=== PATIENT | female | born 1990 | race African-American/Black ===

== ENCOUNTER 2018-03-06 00:08 | Emergency (ER) | payer BC ==
[~2018-03-06] VITALS: Ht 165.1 cm; Wt 88.5 kg
[2018-03-06] MEDS ORDERED: BACTRIM DS TAB1 EACH PO (00:50)
[2018-03-06 01:10] VITALS: BP 115/79
== END 2018-03-06 01:11 | disposition home or self-care (01) ==
LOC: ER 00:08
DX: L03.115 Cellulitis of right lower limb (principal)